=== PATIENT | female | born 1980 | race Caucasian/White ===

== ENCOUNTER → 2019-10-31 09:53 | Outpatient (CLI) | payer MEDICAID, SELFPAY ==
--- NOTE | 2019-10-31 10:09 | RAD_ITS ---
STUDY: X-RAY EXAMINATION: SCOLIOSIS SERIES REASON FOR EXAM: Female, 39 years old. Scoliosis; pain TECHNIQUE: 3 view(s) of the thoracolumbar spine were obtained in the upright standing position. COMPARISON: Comparison is made with prior examination April 13, 2015. FINDINGS: There is a 7 degree dextroscoliosis of the thoracic spine with the apex of the convexity at the T6 level. There is a 6 degree levoscoliosis scoliosis of the lumbar spine with the apex of the convexity at the L3 level. The soft tissue structures are unremarkable. RAD/Scoliosis 1 view IMPRESSION: Scoliosis as described above. Electronically Signed: Paul Diana, at 13:30 EST , Service support ,
== END ==
DX: M41.9 Scoliosis, unspecified (principal)
CPT/HCPCS: 72081

== ENCOUNTER 2019-11-10 14:51 | Emergency (ER) | payer MEDICAID, SELFPAY ==
[2019-11-10 14:53] VITALS: BP 123/72; PULSE 110; RESP 17; TEMP 37.3; O2SAT 95; BMI 34.8
[2019-11-10 15:26] VITALS: RESP 16
--- NOTE | 2019-11-10 15:32 | ED.VIS.BACK ---
History of Present Illness Informant: Patient Onset: Month(s) - 3 months Context: Gradual Onset Injury: - - no specific inujry or trauma Timing: Continuous Quality: Sharp Location: Lumbar Current Severity: Severe Maximum Severity: Severe Worsened by: improves with: Movement Relieved by: Nothing Narrative: 39-year-old female who has a past medical history of scoliosis presents with back pain. Patient states that she gets chronic back pain due to her scoliosis. She states that she has not had any specific inciting injury or trauma but she is having an exacerbation of her chronic pain that has not been relieved with ibuprofen. 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 and reversal of ileostomy Lives: Alone Smoking Status: Former smoker Alcohol: None Drugs: None <Nestor Posada - Last Filed: 11/10/19 15:32> <Alvarez Sargent - Last Filed: 11/10/19 21:17> - Allergies and Home Meds Allergies/Adverse Reactions: Allergies ketorolac tromethamine [From Toradol] Allergy (Verified 11/10/19 14:53) Hives metoclopramide HCl [From Reglan] Allergy (Verified 11/10/19 14:53) Hives morphine Allergy (Verified 11/10/19 14:53) Hives nalbuphine HCl [From Nubain] Allergy (Verified 11/10/19 14:53) Hives prednisone Allergy (Verified 11/10/19 14:53) Hives propoxyphene napsylate [From Darvocet-N 100] Allergy (Verified 11/10/19 14:53) Other makes her throat feel funny tramadol HCl [From Ultram] Allergy (Verified 11/10/19 14:53) Itching duloxetine HCl [From Cymbalta] Adverse Reaction (Verified 11/10/19 14:53) Other seizures STEROIDS Adverse Reaction (Uncoded 11/10/19 14:53) Other gets mean Primary Care Physician: Ivy Freitas [Primary Care Provider] - Review of Systems All systems negative except as indicated General: Denies: Chills, Fever Eyes: Denies: Visual changes - bilaterally, Blurred Vision - bilaterally, Diplopia ENT: Denies: Rhinorrhea, Sore throat Cardiovascular: Denies: Chest pain, Palpitations Respiratory: Denies: Dyspnea, Cough Gastrointestinal: Denies: Abdominal pain, Nausea Genitourinary: Denies: Dysuria, Hematuria, Frequency Musculoskeletal: Reports: Back pain. Denies: Myalgias, Arthralgias, Neck pain, Swelling, Extremity Pain Skin: Denies: Rash, Abscess, Abrasions, Wounds Neurological: Denies: Headache, Weakness, Parasthesia, Numbness <Nestor Posada - Last Filed: 11/10/19 15:32> Physical Exam Vital Signs/Narrative: Vital Signs Temp Pulse Resp BP Pulse Ox 11/10/19 15:26 16 11/10/19 14:53 99.1 F 110 H 17 123/72 H 95 Inital Vital Signs reviewed: Yes General: Well nourished, Well developed Head: Normocephalic, Atraumatic Eyes: Perrl, EOMI ENT: Moist mucous membranes Neck: Supple, Nontender, No lymphadenopathy, No JVD Cardiovascular: Regular rate, Regular rhythm, No murmurs Respiratory: No distress, CTA bilaterally, Chest nontender Abdomen: Soft, Nontender, Nondistended, Normal bowel sounds, No masses Back: Normal Inspection, Paraspinal Tenderness, Negative SLR - Right, Negative SLR - Left. Negative for: Spinal tenderness, CVA tenderness Extremeties: Nontender, No edema Skin: Normal color, No rash Neuro: Alert, Oriented, Normal Strength, Normal Sensation, Normal DTR, Normal Gait Psychological: Normal affect, Normal Mood <Nestor Posada - Last Filed: 11/10/19 15:32> Diagnostic/Tx/Re-eval - Medical Decision Making Patient had a outpatient x-ray of her back that showed scoliosis without acute abnormality. I reviewed the patient's OARRS for which demonstrated that she has had 10 different prescribers for narcotics in multiple areas throughout [place] including about half of these within the last 6 weeks including 1 about 5 days ago. I discussed with her that I would not treat her with narcotics for chronic pain she does not have any signs or symptoms of acute cauda equina syndrome she was given a dose of Norflex I prescribed her Lidoderm patches she already has Flexeril at home and ibuprofen and she will follow-up with her doctor <Nestor Posada - Last Filed: 11/10/19 15:32> - Medical Decision Making Patient was seen with me. I did a [id number] examination with the patient. Patient presents with worsening back pain. Patient states she has a history of scoliosis which causes her back pain. Patient states the pain radiates into her hips but denies any radiation to her lower legs. Patient denies any bowel or bladder changes. Patient denies any saddle anesthesia. Patient denies any trauma or injury. Vital signs are stable. Patient is afebrile. Patient is in no acute distress. Musculoskeletal exam reveals tenderness and mild spasm of the lumbar paraspinal muscles. There is no midline tenderness. There is no bony crepitance or step-off. There is no edema or ecchymosis. There is good range of motion. There is no laxity appreciated. Straight leg raises were negative bilaterally. Strength is 5/5 bilaterally in lower extremities. There are no sensory deficits noted. Patient was given a dose of Norflex here. Patient was given a prescription for Lidoderm patches. Patient was instructed to continue her Flexeril and ibuprofen as previously prescribed. Patient was instructed to follow-up with her primary care physician in 5 to 7 days. Patient understood and was agreeable with the plan. All questions were answered. <Alvarez Sargent - Last Filed: 11/10/19 21:17> ED Disposition <Nestor Posada - Last Filed: 11/10/19 15:32> <Alvarez Sargent - Last Filed: 11/10/19 21:17> - Plan for ED Patient: Disposition: Home or Assisted Living Diagnosis: Low back pain, Scoliosis Instructions: BACK PAIN (Acute or Chronic) Prescriptions: Lidocaine [Lidoderm Patch] 1 patch TOPICAL DAILY #5 patch Prescription Printed Referrals: Ivy Freitas [Primary Care Provider] -
--- NOTE | 2019-11-10 15:38 | ED.VISSUMM ---
- ER Visit Summary Date of Service: 11/10/19 Chief Complaint: [] History of Present Illness: The patient is a 39 F [] Physical Examination: [] Test Results: [] Emergency Department Course and Treatment: [] Treatment Plan: [] Disposition: [] Impression: [] This note was generated with [employer] dictation software. It may contain incorrect words, spelling, and punctuation that were not noted in review of the chart prior to signing This document was made in error. Please see complete note with history and physical dated same date. ED Disposition - Plan for ED Patient: Disposition: Home or Assisted Living Diagnosis: Low back pain, Scoliosis Instructions: BACK PAIN (Acute or Chronic) Prescriptions: Lidocaine [Lidoderm Patch] 1 patch TOPICAL DAILY #5 patch Prescription Printed Referrals: Ivy Freitas [Primary Care Provider] -
[2019-11-10] MEDS: Orphenadrine 60 MG/2 ML Ampul IM (15:39)
[2019-11-10 16:10] VITALS: BP 123/85; PULSE 80; RESP 16; O2SAT 99
--- NOTE | 2019-11-10 16:11 | ED.RN ---
DISCHARGE INSTRUCTIONS GIVEN TO AND REVIEWED WITH PATIENT, PATIENT DENIES QUESTIONS OR CONCERNS ADN VOICES UNDERSTANDING OF DISCHARGE INSTRUCTIONS. PT AMBULATES OUT OF ROOM WITHOUT DIFFICULTY.
== END 2019-11-10 16:11 | disposition home or self-care (01) ==
LOC: ED 15:45
PROVIDERS: Emergency Provider Physician Assistant Medical
DX: M41.9 Scoliosis, unspecified (principal); G89.29 Other chronic pain; Z87.891 Personal history of nicotine dependence
CPT/HCPCS: 96372; 99282

== ENCOUNTER 2020-06-26 12:47 | Emergency (ER) | payer MEDICAID, SELFPAY ==
[2020-06-26 12:48] VITALS: BP 108/75; PULSE 94; RESP 17; TEMP 36.5; O2SAT 96; BMI 35.6
--- NOTE | 2020-06-26 13:19 | ED.VIS.GEN ---
History of Present Illness Chief Complaint: General Illness Informant: Patient Onset: Yesterday Current Severity: Mild Maximum Severity: Moderate Narrative: Patient presents with viral symptoms and is concerned she may have Covid. She reports diarrhea, chills, cough, body aches. She also complains of sore throat. She states her has had similar and is currently getting over his illness. He is due to get his Covid results today. Patient's mother also has sore throat and is not feeling well. - Past Medical History (1) Back pain Status: Chronic Past Medical History - Allergies and Home Meds Allergies/Adverse Reactions: Allergies ketorolac tromethamine [From Toradol] Allergy (Verified 06/26/20 12:48) Hives metoclopramide HCl [From Reglan] Allergy (Verified 06/26/20 12:48) Hives morphine Allergy (Verified 06/26/20 12:48) Hives nalbuphine HCl [From Nubain] Allergy (Verified 06/26/20 12:48) Hives prednisone Allergy (Verified 06/26/20 12:48) Hives propoxyphene napsylate [From Darvocet-N 100] Allergy (Verified 06/26/20 12:48) Other makes her throat feel funny tramadol HCl [From Ultram] Allergy (Verified 06/26/20 12:48) Itching duloxetine HCl [From Cymbalta] Adverse Reaction (Verified 06/26/20 12:48) Other seizures STEROIDS Adverse Reaction (Uncoded 11/10/19 14:53) Other gets mean [facility] - Surgical History: cholecystectomy, colectomy, - - Hysterectomy, history of cholecystectomy and 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 Denies: Fever Eyes: Denies: Visual changes - bilaterally ENT: Reports: Sore throat, - - Congestion Cardiovascular: Denies: Chest pain Respiratory: Reports: Cough Gastrointestinal: Reports: Nausea, Diarrhea Genitourinary: Denies: Dysuria Musculoskeletal: Reports: Myalgias Skin: Denies: Rash Hematologic: Denies: Easy bruising, Easy bleeding Allergy: Denies: Uticaria Physical Exam Vital Signs/Narrative: Vital Signs Temp Pulse Resp BP Pulse Ox 06/26/20 12:48 97.7 F L 94 17 108/75 96 Inital Vital Signs reviewed: Yes Head: Normocephalic Eyes: Perrl, EOMI ENT: Moist mucous membranes, - - Uvula midline. Posterior pharyngeal drainage noted. Neck: Supple Cardiovascular: Regular rate, Regular rhythm Respiratory: No distress, CTA bilaterally Abdomen: Soft, Nontender Extremities: Nontender Skin: Normal color Neurological: Alert, Oriented x3 Psychological: - - Anxious Diagnostic/Tx/Re-eval Impressions Chest X-Ray 06/26/20 13:30 IMPRESSION: Normal x-ray examination of the chest. Electronically Signed: Paul Lebron, at 13:54 EDT , Service support , 06/26/20 13:30 Chest 1 View (Portable) [RAD] Stat - Medical Decision Making Covid send out test was obtained. Instructions were given to the patient regarding quarantine. She is given return instructions. ED Disposition - Plan for ED Patient: Disposition: Home or Assisted Living Diagnosis: Viral syndrome Instructions: ED Viral Syndrome [facility] [Primary Care Provider] - 1 Week if not improving
--- NOTE | 2020-06-26 13:30 | RAD_ITS ---
STUDY: X-RAY CHEST REASON FOR EXAM: Female, 39 years old. DIARRHEA, CHILLS, COUGH, AND BODY ACHES WITH SYMPTOMS STARTING LAST NIGHT TECHNIQUE: Single AP portable view of the chest. COMPARISON: Comparison is made with prior study dated 08/03/2016. FINDINGS: The lungs are clear and expanded. There is no demonstrated pleural abnormality. Normal size heart. Normal mediastinum and clifton. Normal visualized pulmonary arteries. Normal visualized aortic arch and descending thoracic aorta. Normal visualized thoracic spine. Normal visualized ribs, clavicles, and shoulders. There is no demonstrated abnormality of the visualized soft tissue structures of the upper abdomen. RAD/Chest 1 View (Portable) IMPRESSION: Normal x-ray examination of the chest. Electronically Signed: Paul Diana, at 13:54 EDT , Service support ,
[2020-06-26 14:08] VITALS: BP 121/88; PULSE 69; RESP 15; O2SAT 98
== END 2020-06-26 14:14 | disposition home or self-care (01) ==
PROVIDERS: Emergency Provider Emergency Medicine
DX: U07.1 COVID-19 (principal); Z87.891 Personal history of nicotine dependence
CPT/HCPCS: 71045; 87635; 99281; U0003

== ENCOUNTER 2023-09-11 10:46 | Emergency (ER) | payer MEDICARE, MEDICAID, SELFPAY ==
[2023-09-11 10:49] VITALS: BP 126/79; PULSE 82; RESP 16; TEMP 36.2; O2SAT 97; BMI 37.2
[2023-09-11 10:53] VITALS: BP 126/79; PULSE 82; RESP 16; TEMP 36.2; O2SAT 97
--- NOTE | 2023-09-11 11:02 | ED.RN ---
PT TOLD THAT SHE WAS WALKING AROUND HER HOUSE NAKED BECAUSE PEOPLE WAS CHASING HER. ALSO STATES NOT HEARING VOICES RIGHT NOW
--- NOTE | 2023-09-11 11:12 | RAD_ITS ---
EXAM: XR CHEST, 1 VIEW CLINICAL INDICATION: altered mental status TECHNIQUE: Frontal view of the chest. COMPARISON: 06/26/2020. FINDINGS: LUNGS AND PLEURAL SPACES: Mild pulmonary hypoinflation. Discoid atelectasis in the right lower lung zone and near the left costophrenic sulcus. No obvious confluent infiltrates. No pneumothorax. No effusion. HEART: Unremarkable. Cardiac silhouette not enlarged. MEDIASTINUM: Central airways and mediastinal contour are unremarkable. BONES/JOINTS: Unremarkable. No acute fracture. SOFT TISSUES: Unremarkable. RAD/Chest 1 View (Portable) IMPRESSION: 1. Limited study due to limited inspiratory effort. 2. Discoid atelectasis in the right lower lung zone and near the left costophrenic sulcus. If interstitial pneumonitis is a clinical consideration, HRCT chest will help clarify. Electronically Signed: Adam Betancourt MD at 12:09 EST ,
--- NOTE | 2023-09-11 11:12 | CT_ITS ---
EXAM: CT HEAD WITHOUT INTRAVENOUS CONTRAST CLINICAL INDICATION: altered mental status TECHNIQUE: Multiple axial images were obtained of the head without intravenous contrast. This CT exam was performed using one or more of the following dose reduction techniques: automated exposure control, adjustment of the mA and/or kV according to patient size, and/or use of iterative reconstruction technique. RADIATION DOSE: CTDIvol = 44.99 mGy, DLP = 779.24 mGy-cm COMPARISON: CT head without contrast 04/12/2015. FINDINGS: BRAIN AND EXTRA-AXIAL SPACES: Unremarkable. No intra- or extra-axial hemorrhage. No evidence of acute infarct. No intracranial mass or mass effect. There is preservation of the baeza/white matter interface. Posterior fossa structures are unremarkable. Ventricles are appropriate for age. No hydrocephalus. Basal cisterns are patent. BONES/JOINTS: Unremarkable. No discrete lytic or blastic abnormalities. SINUSES: Unremarkable as visualized. Clear. MASTOID AIR CELLS: Unremarkable. Clear. ORBITS: Visualized globes, extraocular muscles, optic nerves and retrobulbar fat appear unremarkable. CT/Brain/Head without Contrast IMPRESSION: Negative head/brain CT without intravenous contrast and unchanged when compared to 04/12/2015. Electronically Signed: Adam Betancourt MD at 12:21 EST ,
--- NOTE | 2023-09-11 11:12 | EKG12_ITS ---
Test Reason : Blood Pressure : / mmHG Vent. Rate : 079 BPM Atrial Rate : 079 BPM P-R Int : 144 ms QRS Dur : 076 ms QT Int : 404 ms P-R-T Axes : 041 035 043 degrees QTc Int : 463 ms Normal sinus rhythm Abnormal ECG Confirmed by RADHA BLOUNT, PEPE ([id number]), film editor supervisor BEAR DIAZ ([id number]) on 09/12/2023 9:36:37 AM Referred By: Confirmed By:PEPE GARCIA MD
--- NOTE | 2023-09-11 11:17 | EX.ED.DYSGE1 ---
HPI History of Present Illness Chief Complaint: Mental Health Informant: patient and EMS Narrative Narrative: 42-year-old female presenting to the emergency room via EMS for altered mental status. Per EMS the patient's mother found her walking around the house naked and confused. Patient tells me that her mom fell during the night is unknown if she injured herself that is why she was here. When asked why her mom does not the patient she says oh am I the patient . When asked why she was naked and how she states she was running from people chasing her. She then tells me that that happened 2 lopez ago when she was strung out on methamphetamines. EMS states that mom wanted her to go to an [facility] but they were uncomfortable with her trying to escape from the ambulance and brought her here. Patient has not been to this emergency room since the end of 2019. Patient states she does not do any illicit drugs. EMS brings some medication packages with her 1 that was filled last year and is empty and 1 that is not new to begin until 26 September. Patient states she is not currently hearing any auditory or visual hallucinations. She states she is not trying to harm herself. She states that 2 evenings ago she was at a friend's house dying her hair. She states that last night she slept like a log . She denies any pain. She denies any recent infections. magnetic testing technician states that when she went to perform the patient's EKG the patient had the remote control to the TV on her head. Patient was inquiring as to where the remote was and was informed that it was on top of her head. Patient states no I am sorry that is my cat. Patient's sister called and spoke with nursing and was inquiring as to whether or not her mom should come up. We advised her that having somebody here that could tell us more of the patient's history and story would be advantageous. PFSH PFSH Home Medications clindamycin HCl 300 mg capsule 300 mg PO Q6H #40 caps 08/09/17 [Rx Last Taken Unknown] fluconazole 150 mg tablet 150 mg PO X1 #1 TAB 08/09/17 [Rx Last Taken Unknown] ibuprofen 800 mg tablet 800 mg PO TID PRN PRN Pain #20 tabs 08/09/17 [Rx Last Taken Unknown] Risperidone 2 mg PO DAILY 11/10/19 [History Last Taken Unknown] hydroxyzine pamoate 50 mg capsule 50 mg PO BID PRN Anxiety 11/10/19 [History Last Taken Unknown] lamotrigine 150 mg tablet 150 mg PO DAILY 11/10/19 [History Last Taken Unknown] lidocaine 5 % topical patch 1 patch topical DAILY #5 patches 11/10/19 [Rx Last Taken Unknown] propranolol 10 mg tablet 10 mg PO DAILY 11/10/19 [History Last Taken Unknown] risperidone 3 mg tablet 3 mg PO DAILY 11/10/19 [History Last Taken Unknown] topiramate 100 mg tablet 50 mg PO TID 11/10/19 [History Last Taken Unknown] trazodone 150 mg tablet 150 mg PO DAILY 11/10/19 [History Last Taken Unknown] trihexyphenidyl 2 mg tablet mg 09/11/23 [History Last Taken Unknown] Allergy/AdvReac Type Severity Reaction Status Date / Time ketorolac tromethamine Allergy Hives Verified 09/11/23 10:54 [From Toradol] metoclopramide HCl Allergy Hives Verified 09/11/23 10:54 [From Reglan] morphine Allergy Hives Verified 09/11/23 10:54 nalbuphine HCl [From Nubain] Allergy Hives Verified 09/11/23 10:54 prednisone Allergy Hives Verified 09/11/23 10:54 propoxyphene napsylate Allergy Other Verified 09/11/23 10:54 [From Darvocet-N 100] tramadol HCl [From Ultram] Allergy Itching Verified 09/11/23 10:54 Corticosteroids AdvReac GETS MEAN Verified 09/11/23 10:54 (Glucocorticoids) [steroids] duloxetine HCl AdvReac Other Verified 09/11/23 10:54 [From Cymbalta] Social History Smoking Status: Current every day smoker tobacco type: cigarettes ROS ROS ED ROS Narrative Review of systems gone through with the patient but I am not sure how reliable it is as she does appear confused not knowing where she is at. Constitutional Constitutional ED: Denies chills, fever(s) or weight loss Eyes Eyes: Denies change in vision or diplopia ENT ENT ED: Denies ear pain, rhinorrhea or sore throat Cardiovascular Cardiovascular: Denies chest pain, orthopnea, palpitations or racing heartbeat Respiratory/Chest Respiratory/Chest: Denies cough, dyspnea or orthopnea Gastrointestinal Gastrointestinal: Denies abdominal pain, diarrhea, nausea or vomiting Genitourinary Genitourinary ED: Denies dysuria, hematuria or urinary frequency Musculoskeletal Musculoskeletal: Denies arthralgias or myalgias Integumentary Denies abscess or rash Neurologic Neurologic: Denies headache(s) or weakness Psychiatric Psychiatric: Denies anxiety, depression, suicidal ideation or suicidal thoughts Endocrine Endocrinology: Denies polydipsia, polyphagia or polyuria Allergic/Immunologic Allergic/Immunologic ED: Denies mouth swelling, tongue swelling or urticaria EXAM Physical Exam Narrative Exam Narrative: Patient laying in the bed. She appears in no acute distress. Const Vital Signs: 09/11/23 10:49 09/11/23 10:53 09/11/23 16:00 Temperature 97.1 F L 97.1 F L Temperature Source Temporal Temporal Pulse Rate 82 82 64 Respiratory Rate 16 16 16 Blood Pressure 126/79 H 126/79 H 134/78 H Blood Pressure Mean 94 94 96 Pulse Ox 97 97 98 Oxygen Delivery Method Room Air Room Air Room Air Positive well nourished, well developed and obese General Appearance ED: well developed Nutritional Appearance: obese HEENT Reports normocephalic, head/scalp atraumatic and moist mucous membranes Eyes EOMs intact bilaterally Eyes Narrative: Pupils are 5 mm and sluggish bilaterally General Eye ED: Negative for scleral icterus Neck no lymphadenopathy, supple and no JVD Resp normal respiratory effort and clear to auscultation bilaterally Cardio regular rate, regular rhythm and no murmurs GI normal to inspection, nondistended, normoactive bowel sounds and non-tender Palpation: soft Back/Spine no CVA tenderness and normal ROM Extremity normal to inspection General Extremety ED: Negative for edema General Extremity: Negative for edema Neuro CN's II-XII intact bilaterally Neuro Narrative: Patient knows its 2023. She knows her name. She believes that she is in [facility]. Sensorium / Orientation: alert and orientation impaired Motor Exam: strength 5/5 throughout Psych Psych Narrative: Patient has nonlinear thinking. Patient goes off on tangents of stories that are not related to the question she was being asked. She appears internally stimulated often laughing for no apparent reason. She has flight of ideas. Mood & Affect: Negative for depressed or tearful Skin no rashes or lesions noted and no wounds MDM MDM MDM Narrative Medical decision making narrative: Workup is essentially negative. White count 9.5 with a hemoglobin of 13.5. BMP showed a glucose of 121. Creatinine 0.93. CO2 is 22. Troponin liver enzymes normal. Urinalysis with no overt infection. Toxicology test positive for PCP but a question of this could be from lamotrigine which she is reportedly taking. CT the brain negative for acute. My independent interpretation of the chest x-ray is no acute process. We are currently waiting for family to come. I question whether or not there is underlying psychiatric illness here. Will speak with crisis. Family arrived. Her sister states that she started noticing bizarre behavior around a month ago. She asked if she was taking her medications or on something. Mom states that she really cannot pinpoint exactly when she started acting strange but today was very incoherent at home and could not explain why she was naked. I am not seeing an infectious or metabolic cause for the patient's symptoms today. CT shows no intracranial findings. Her vital signs have been stable. Crisis also concurs that psychiatric replacement is advisable. I filled out a pink slip . We will be working towards placement. At 1728 I was advised that the patient has been accepted to [facility]. We will now begin obtaining transportation. History & Record Review Discussion w/independent historian: EMS personnel, Patient and Family Lab Data Attestation: I reviewed the patient's lab results. Labs: Laboratory Results - last 24 hr 09/11/23 09/11/23 11:28 11:45 WBC 9.5 RBC 4.54 Hgb 13.5 Hct 40.0 MCV 88.1 MCH 29.7 MCHC 33.8 RDW Std Deviation 43.1 RDW Coeff of Belkis 13.4 Plt Count 274 MPV 10.2 Immature Gran % (Auto) 1.100 H Neut % (Auto) 72.2 H Lymph % (Auto) 16.8 L Sumner % (Auto) 7.4 Eos % (Auto) 1.8 Baso % (Auto) 0.7 Absolute Neuts (auto) 6.9 Absolute Lymphs (auto) 1.59 Nucleated RBC % 0 Sodium 141 Potassium 3.7 Chloride 109 H Carbon Dioxide 22.0 Anion Gap 10 BUN 10 Creatinine 0.93 Estim Creat Clear Calc 104.05 Est GFR (MDRD) Af Amer 85 Est GFR (MDRD) Non-Af 70 BUN/Creatinine Ratio 10.8 Glucose 121 H Calcium 9.0 Total Bilirubin 0.50 Direct Bilirubin 0.14 AST 18 ALT 31 Alkaline Phosphatase 101 Troponin I High Sens 4 Total Protein 7.5 Albumin 3.6 Globulin 3.9 Urine Color Yellow Urine Clarity Clear Urine pH 6.5 Ur Specific Gibson 1.010 Urine Protein Negative Urine Glucose (UA) Normal Urine Ketones 5 H Urine Occult Blood 10 H Urine Nitrite Negative Urine Bilirubin Negative Urine Urobilinogen Normal Ur Leukocyte Esterase 100 H Urine RBC 0 SEEN Urine WBC 0 SEEN Ur Squamous Epith Cells 0 SEEN Urine Bacteria 0 SEEN Urine Mucus 0 SEEN Salicylates 3.2 Urine Opiates Screen NEGATIVE Urine Methadone Screen NEGATIVE Acetaminophen < 2.0 L Ur Barbiturates Screen NEGATIVE Ur Phencyclidine Scrn POSITIVE H Ur Amphetamines Screen NEGATIVE MDMA (Ecstasy) Screen NEGATIVE U Benzodiazepines Scrn NEGATIVE Urine Cocaine Screen NEGATIVE U Cannabinoids Screen NEGATIVE Ur Drug Screen Comment Ethyl Alcohol < 3.0 Radiography Diagnostic Testing: Clinical Impression(s) from Imaging Studies Brain CT 09/11/23 11:12 IMPRESSION: Negative head/brain CT without intravenous contrast and unchanged when compared to 04/12/2015. Electronically Signed: Adam Betancourt MD at 12:21 EST , Chest X-Ray 09/11/23 11:12 IMPRESSION: 1. Limited study due to limited inspiratory effort. 2. Discoid atelectasis in the right lower lung zone and near the left costophrenic sulcus. If interstitial pneumonitis is a clinical consideration, HRCT chest will help clarify. Electronically Signed: Adam Betancourt MD at 12:09 EST , EKG Initial EKG: Attestation: I personally reviewed and interpreted this EKG as follows: Comments: Normal sinus rhythm ventricular rate of 79 bpm. No significant changes to suggest ACS. No preexcitation. Discharge Plan Triage Chief Complaint: Mental Health ED Provider: [facility] Dx/Rx/DC Orders Clinical Impression: Acute psychosis Prescriptions: No Action clindamycin HCl 300 MG capsule 300 mg PO Q6H Qty: 40 0RF ibuprofen 800 MG tablet 800 mg PO TID PRN PRN (Reason: Pain) Qty: 20 0RF fluconazole 150 MG tablet 150 mg PO X1 Qty: 1 0RF lamotrigine 150 MG tablet 150 mg PO DAILY hydroxyzine pamoate 50 MG capsule 50 mg PO BID PRN (Reason: Anxiety) risperidone 3 MG tablet 3 mg PO DAILY propranolol 10 MG tablet 10 mg PO DAILY trazodone 150 MG tablet 150 mg PO DAILY topiramate 100 MG tablet 50 mg PO TID Risperidone 2 MG tablet 2 mg PO DAILY lidocaine 1 PATCH patch 1 patch topical DAILY Qty: 5 0RF trihexyphenidyl 2 mg tablet Primary [facility] - Disposition Disposition: Psychiatric Hospital or Unit
[2023-09-11 11:32] LABS: Bacteria 0 SEEN /hpf (None Seen); Mucous, Urine 0 SEEN /hpf (<or=2+); Red Blood Cells-Urine 0 SEEN /hpf (0-5); Squamous Epithelial Cells - UA 0 SEEN /hpf (5-10); White Blood Cells 0 SEEN /hpf (0-5)
[2023-09-11 11:35] LABS: Color, Urine Yellow (Yellow); Glucose, Dipstick Normal (Normal); Ketone-Dipstick 5 mg/dl (Negative); Leukocyte Esterase-Dipstick 100 /ul (Negative); Nitrite-Dipstick Negative (Negative); Occult Blood-Urine 10 /ul (Negative); Protein-Dipstick Negative (Negative); Urine Bilirubin Dipstick Negative (Negative); Urine Clarity Clear (Clear); Urine Urobilinogen Normal (Normal); Urine pH 6.5 (5.0 - 8.0)
[2023-09-11 11:51] LABS: Absolute Lymphocyte Count 1.59 X10^3/uL (0.83-4.51); Absolute Neutrophil Count 6.9 X10^3/uL (2.0-7.7); Basophil# 0.07 X10^3/uL; Basophil% 0.7 % (0-1); Eosinophil# 0.17 X10^3/uL; Eosinophils% 1.8 % (0-5); Hemoglobin 13.5 g/dL (12.0-15.0); Lymphocyte # 1.59 X10^3/ul (0.83-4.51); Lymphocyte % 16.8 % (19-41); Mean Corp Hgb Conc 33.8 g/dL (32-36); Mean Corpuscular Hgb 29.7 pg (27.0-32.0); Mean Corpuscular Volume 88.1 fL (81-99); Mean Platelet Vol. 10.2 fl (6.2-12.0); Monocyte% 7.4 % (0-10); NRBC Flagged by Analyzer 0 % (0-5); Neutrophil # 6.86 X10^3/uL (2.7-7.7); Neutrophil % 72.2 % (47-70); Platelet Count 274 K/mm3 (150-450); RBC Distribution Width CV 13.4 % (11.6-14.6); RBC Distribution Width SD 43.1 fl (35.1-43.9); Red Blood Count 4.54 M/mm3 (4.2-5.4); White Blood Count 9.5 K/mm3 (4.4-11.0)
[2023-09-11 11:54] LABS: Amphetamine Urine VISTA NEGATIVE (<1000 ng/mL); Barbiturate Urine VISTA NEGATIVE (< 200 ng/mL); Benzodiazepine Urine VISTA NEGATIVE (< 200 ng/mL); Cocaine Urine VISTA NEGATIVE (< 300 ng/mL); Ecstacy Urine VISTA NEGATIVE (< 500 ng/mL); Methadone Urine VISTA NEGATIVE (< 300 ng/mL); PCP Urine VISTA POSITIVE (< 25 ng/mL); THC Urine VISTA NEGATIVE (< 50 ng/mL); Vista UDS pH Range 6
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
[2023-09-11 12:46] LABS: AST(SGOT) 18 U/L (15-37); Alanine Aminotransfer ALT/SGPT 31 U/L (13-56); Albumin, Serum 3.6 g/dL (3.2-5.0); Alkaline Phosphatase 101 U/L (45-117); Anion Gap 10 (5-15); BUN 10 mg/dL (7-18); BUN/Creat Ratio 10.8 RATIO (10-20); Bilirubin, Direct 0.14 mg/dL (0.00-0.30); Chloride 109 mmol/L (98-107); Creatinine, Serum 0.93 mg/dL (0.55-1.02); EST Glomerular Filtration Rate 70 mL/min (>60); Est Glom Filt Rate - Afr Amer 85 mL/min (>60); Estimated Creatinine Clearance 104.05 ml/min; Globulin 3.9 g/dL (2.2-4.2); Glucose 121 mg/dL (74-106); Potassium 3.7 mmol/L (3.5-5.1); Protein, Total 7.5 g/dL (6.4-8.2); Sodium Level 141 mmol/L (136-145); Troponin-I HS 4 pg/mL (3.0-54.0)
[2023-09-11 13:22] LABS: Acetaminophen (Tylenol) Level < 2.0 ug/mL (10.0-30.0); Alcohol, Blood (Medical)-Serum < 3.0 mg/dL; Salicylate 3.2 mg/dL (2.8-20.0)
--- NOTE | 2023-09-11 14:56 | ED.RN ---
RN INTO ROOM TO ASSIST PATIENT IN TRANSFERRING TO A ROOM CLOSER TO THE NURSES STATION. RN NOTICED 2 PILL PACKS ON THE COUNTER, AND 3 LOOSE PILLS 2 WHITE, ONE ORANGE, UNIDENTIFIED. THIS RN AND Sandra MORGAN RN SEALED PILL PACK AND LOCKED IN ED MED ROOM LOCKED DR PER PT'S HOME MED PROTOCOL. BAG NUMBER IS [id number].
--- NOTE | 2023-09-11 15:32 | ED.RN ---
brisa from crisis at bedside.
[2023-09-11 16:00] VITALS: BP 134/78; PULSE 64; RESP 16; O2SAT 98
--- NOTE | 2023-09-11 17:22 | ED.RN ---
GADIEL CALLED, ETA 20 MIN ([phone])
--- NOTE | 2023-09-11 17:39 | ED.RN ---
CALLED PT FAMILY AND THEY ARE UPDATED
--- NOTE | 2023-09-11 17:49 | ED.RN ---
PT. CAROLINA GOT FROM [facility] AND GIVEN TO EMS TO SEND WITH PT.
== END 2023-09-11 17:53 ==
PROVIDERS: Emergency Provider Emergency Medicine; Visit Provider Emergency Medicine
DX: F23 Brief psychotic disorder (principal); F17.210 Nicotine dependence, cigarettes, uncomplicated; E66.9 Obesity, unspecified
CPT/HCPCS: 80320; 80329 ×2; 70450; 71045; 80048; 80076; 80307; 81001; 84484; 85025; 87631; 93005; 99284; A4216; G0480

== ENCOUNTER → 2024-08-09 | Outpatient (CLI) | payer MEDICARE, MEDICAID, SELFPAY ==
[2024-08-09 12:41] LABS: Absolute Lymphocyte Count 2.26 X10^3/uL (0.83-4.51); Absolute Neutrophil Count 5.1 X10^3/uL (2.0-7.7); Basophil# 0.07 X10^3/uL; Basophil% 0.8 % (0-1); Eosinophil# 0.28 X10^3/uL; Eosinophils% 3.4 % (0-5); Hemoglobin 12.8 g/dL (12.0-15.0); Lymphocyte # 2.26 X10^3/ul (0.83-4.51); Lymphocyte % 27.2 % (19-41); Mean Corp Hgb Conc 30.5 g/dL (32-36); Mean Corpuscular Hgb 27.6 pg (27.0-32.0); Mean Corpuscular Volume 90.7 fL (81-99); Mean Platelet Vol. 9.5 fl (6.2-12.0); Monocyte# 0.52 X10^3/uL; Monocyte% 6.3 % (0-10); NRBC Flagged by Analyzer 0 % (0-5); Neutrophil # 5.09 X10^3/uL (2.7-7.7); Neutrophil % 61.2 % (47-70); Platelet Count 336 K/mm3 (150-450); RBC Distribution Width CV 13.3 % (11.6-14.6); RBC Distribution Width SD 44.6 fl (35.1-43.9); Red Blood Count 4.63 M/mm3 (4.2-5.4); White Blood Count 8.3 K/mm3 (4.4-11.0)
[2024-08-09 13:00] LABS: Vitamin B12 232 pg/mL (211-911)
[2024-08-09 13:02] LABS: ALB/GLOB Ratio 0.9 RATIO (0.9-2.4); AST(SGOT) 14 U/L (15-37); Alanine Aminotransfer ALT/SGPT 22 U/L (13-56); Albumin, Serum 3.6 g/dL (3.2-5.0); Alkaline Phosphatase 110 U/L (45-117); Anion Gap 5 (5-15); BUN 9 mg/dL (7-18); BUN/Creat Ratio 11.3 RATIO (10-20); Calcium,Total 9.1 mg/dL (8.5-10.1); Chloride 111 mmol/L (98-107); EST Glomerular Filtration Rate 83 mL/min (>60); Est Glom Filt Rate - Afr Amer 101 mL/min (>60); Globulin 4.1 g/dL (2.2-4.2); Glucose 97 mg/dL (74-106); Magnesium 2.1 mg/dL (1.6-2.6); Potassium 3.9 mmol/L (3.5-5.1); Protein, Total 7.7 g/dL (6.4-8.2); Sodium Level 140 mmol/L (136-145)
== END | disposition home or self-care (01) ==
LOC: VSLAB 11:27
PROVIDERS: PCP Family Medicine; Visit Provider Family Medicine
DX: R22.42 Localized swelling, mass and lump, left lower limb (principal); E66.9 Obesity, unspecified; R63.1 Polydipsia; R35.0 Frequency of micturition; Z13.6 Encounter for screening for cardiovascular disorders; Z13.228 Encounter for screening for other metabolic disorders
CPT/HCPCS: 36415; 80053; 82607; 83735; 85025